=== PATIENT | female | born 1980 | race Caucasian/White ===

== ENCOUNTER 2017-02-02 13:12 | Emergency (ER) | payer OTHER ==
[~2017-02-02] VITALS: Ht 152.4 cm; Wt 80.0 kg
[~2017-02-02 13:12] MED LIST: ACET325T33 PO; CIPR500T4 PO; D-ME473S18 PO; DOCU-144 PO; FLUT9.9S NASAL; PSEU30TA38 PO
[2017-02-02 13:24] VITALS: Ht 152.4 cm; Wt 80.0 kg
[2017-02-02] MEDS ORDERED: SOD CHLORIDE 0.9% 500 ML IV STA (15:11)
[2017-02-02] MEDS ORDERED: ONDANSETRON 4 MG INJ IV STA ×2 (15:11→16:30)
[2017-02-02] MEDS ORDERED: DICYCLOMINE 20 MG INJ IM ONE (15:30)
[2017-02-02 15:32] LABS: BASOPHILS % 0.2 % (0.0-2.0); EOSINOPHILS # 0.1 10^3/ul (0.0-0.5); EOSINOPHILS % 0.6 % (0.0-7.0); HEMATOCRIT 40.1 % (37.0-47.0); LYMPHOCYTES # 2.8 10^3/ul (0.8-2.9); LYMPHOCYTES % 17.4 % (15.0-51.0); MEAN CORPUSCULAR HEMOGLOBIN 33.9 pg (29.0-33.0); MEAN CORPUSCULAR HGB CONC 34.9 g/dl (32.0-37.0); MEAN CORPUSCULAR VOLUME 97.1 fl (82.0-101.0); MEAN PLATELET VOLUME 9.4 fl (7.4-10.4); MONOCYTES % 6.1 % (0.0-11.0); NEUTROPHIL # 12.1 10^3/ul (1.6-7.5); NEUTROPHILS % 75.2 % (39.0-77.0); PLATELET COUNT 259 10^3/UL (140-415); RED BLOOD COUNT 4.13 10^6/ul (4.20-5.40); RED CELL DISTRIBUTION WIDTH 12.6 % (11.5-14.5); WHITE BLOOD COUNT 16.1 10^3/ul (4.8-10.8)
--- NOTE | 2017-02-02 15:36 | ERD ---
ER Documentation Chief Complaint Chief Complaint pt bib self with c/o right sided abd pain, and vomting since yesterday HPI This is a 36-year-old female presents with 24-48 hours of symptoms that include lower abdominal discomfort. At triage she noted right-sided abdominal pain but in the ER she is describing suprapubic abdominal discomfort. She does describe some dysuria. Mild nausea but no vomiting. She also has been constipated for 1 week. She describes a prolonged history of constipation. No fevers or chills or anorexia. No migratory pain. ROS All systems reviewed and are negative except as per history of present illness. Medications Home Meds Active Scripts Metronidazole* (Flagyl*) 500 Mg Tablet, 500 MG PO TID for 7 Days, TAB Prov:SANIYA CASAS MD 02/02/17 Ciprofloxacin Hcl* (Ciprofloxacin Hcl*) 500 Mg Tablet, 500 MG PO BID for 7 Days , TAB Prov:SANIYA CASAS MD 02/02/17 Docusate Sodium* (Colace*) 100 Mg Capsule, 100 MG PO BID Y for CONSTIPATION, # 30 CAP Prov:SANIYA CASAS MD 02/02/17 Ondansetron (Ondansetron Odt) 4 Mg Tab.rapdis, 4 MG PO Q6H Y for NAUSEA AND/OR VOMITING, #10 TAB Prov:SANIYA CASAS MD 02/02/17 Hydrocodone/Acetaminophen ([place] 10-325 Tablet) 1 Each Tablet, 1 TAB PO Q6H Y for PAIN, #7 TAB Prov:SANIYA CASAS MD 02/02/17 Dextromethorphan Hb-Promethazine Hcl (Promethazine DM Syrup) 473 Ml Syrup, 5 ML PO Q6H Y for COUGH, #4 OZ Prov:CAROLE HUYNH PA-C 03/30/16 Acetaminophen* (Tylenol*) 325 Mg Tablet, 2 TAB PO Q8 Y for PAIN AND OR ELEVATED TEMP, #20 TAB Prov:CAROLE HUYNH PA-C 03/30/16 Fluticasone Propionate (Flonase Allergy Relief) 9.9 Ml [place].susp, 1 SPRAY NASAL DAILY, #1 BOTTLE TO EACH NOSTRIL Prov:CAROLE HUYNH PA-C 03/30/16 Pseudoephedrine Hcl* (Pseudoephedrine Hcl*) 30 Mg Tablet, 30 MG PO Q6 Y for CONGESTION, #30 TAB Prov:CAROLE HUYNH PA-C 03/30/16 Ciprofloxacin Hcl* (Ciprofloxacin Hcl*) 500 Mg Tablet, 500 MG PO BID for 7 Days , TAB Prov:CAROLE HUYNH PA-C 03/30/16 Docusate Sodium* (Colace*) 100 Mg Capsule, 100 MG PO TID, #30 CAP Prov:ASAEL RIOS PA-C 11/22/15 Allergies Allergies: Coded Allergies: ibuprofen (Verified Allergy, Intermediate, "BODY REJECTS IT... I FEEL SICK ", 11/22/15) PMhx/Soc Medical and Surgical Hx: pt denies Medical Hx, pt denies Surgical Hx History of Surgery: No Anesthesia Reaction: No Hx Neurological Disorder: No Hx Respiratory Disorders: No Hx Cardiac Disorders: No Hx Psychiatric Problems: No Hx Miscellaneous Medical Probl: No (hernia) Hx Alcohol Use: No Hx Substance Use: No Hx Tobacco Use: No Smoking Status: Never smoker FmHx Family History: No diabetes Physical Exam Vitals Vital Signs Date Time Temp Pulse Resp B/P Pulse Ox O2 Delivery O2 Flow Rate FiO2 02/02/17 13:24 99.4 116 16 122/86 99 Physical Exam General: Well developed, well nourished, no acute distress Head: Normocephalic, atraumatic. Eyes: Pupils equally reactive, EOM intact ENT: Moist mucous membranes Neck: Supple, no lymphadenopathy Respiratory: Lungs clear bilaterally, no distress Cardiovascular: RRR, no murmurs, rubs, or gallops Abdominal: Soft, mild tenderness to the suprapubic region, negative Chandler sign , negative Rovsing sign, no peritonitis, negative Chandler sign. : Deferred MSK: No edema, no unilateral swelling, 5/5 strength Neurologic: Alert and oriented, moving all extremities, normal speech, no focal weakness, no cerebellar signs Skin: No rash Psych: Normal mood Result Diagram: 02/02/17 1523 02/02/17 1523 Results 24 hrs Laboratory Tests Test 02/02/17 13:20 02/02/17 15:23 Urine Color YELLOW Urine Clarity CLOUDY Urine pH 6.0 Urine Specific [place] 1.028 Urine Ketones 1+mg/dL Urine Nitrite NEGATIVEmg/dL Urine Bilirubin NEGATIVEmg/dL Urine Urobilinogen NEGATIVEmg/dL Urine Leukocyte Esterase 2+[place]/ul Urine Microscopic RBC 11/HPF Urine Microscopic WBC 8/HPF Urine Squamous Epithelial Cells MANY/HPF Urine Mucus MANY/HPF Urine Hemoglobin 1+mg/dL Urine Glucose NEGATIVEmg/dL Urine Total Protein 1+mg/dl White Blood Count 16.110^3/ul Red Blood Count 4.1310^6/ul Hemoglobin 14.0g/dl Hematocrit 40.1% Mean Corpuscular Volume 97.1fl Mean Corpuscular Hemoglobin 33.9pg Mean Corpuscular Hemoglobin Concent 34.9g/dl Red Cell Distribution Width 12.6% Platelet Count 19695^3/UL Mean Platelet Volume 9.4fl Neutrophils % 75.2% Lymphocytes % 17.4% Monocytes % 6.1% Eosinophils % 0.6% Basophils % 0.2% Nucleated Red Blood Cells % 0.0/100WBC Neutrophils # 12.110^3/ul Lymphocytes # 2.810^3/ul Monocytes # 1.010^3/ul Eosinophils # 0.110^3/ul Basophils # 0.010^3/ul Nucleated Red Blood Cells # 0.010^3/ul Sodium Level 141mmol/L Potassium Level 3.7mmol/L Chloride Level 105mmol/L Carbon Dioxide Level 25mmol/L Anion Gap 15 Blood Urea Nitrogen 9mg/dl Creatinine 0.73mg/dl Glucose Level 101mg/dl Calcium Level 9.7mg/dl Total Bilirubin 0.4mg/dl Direct Bilirubin 0.00mg/dl Indirect Bilirubin 0.4mg/dl Aspartate Amino Transf (AST/SGOT) 24IU/L Alanine Aminotransferase (ALT/SGPT) 33IU/L Alkaline Phosphatase 93IU/L Total Protein 8.1g/dl Albumin 4.3g/dl Globulin 3.80g/dl Albumin/Globulin Ratio 1.13 Lipase 48U/L Current Medications Medications (Trade) Dose Ordered Sig/Jean Route PRN Reason Start Time Stop Time Status Last Admin Dose Admin Sodium Chloride (NS) 500 ml @ 500 mls/hr Q1H STAT IV 02/02/17 15:11 02/02/17 16:10 DC 02/02/17 15:31 Dicyclomine HCl (Bentyl) 10 mg ONCE ONCE IM 02/02/17 15:30 02/02/17 15:31 DC 02/02/17 15:35 Ondansetron HCl (Zofran Inj) 4 mg ONCE STAT IV 02/02/17 15:11 02/02/17 15:13 DC 02/02/17 15:31 Hydromorphone HCl (Dilaudid) 0.5 mg ONCE STAT IV 02/02/17 16:30 02/02/17 16:31 DC 02/02/17 16:35 Ondansetron HCl (Zofran Inj) 4 mg ONCE STAT IV 02/02/17 16:30 02/02/17 16:31 DC 02/02/17 16:34 Ciprofloxacin (Cipro) 500 mg ONCE ONCE PO 02/02/17 16:30 02/02/17 16:31 DC 02/02/17 16:34 Metronidazole (Flagyl) 500 mg ONCE ONCE PO 02/02/17 16:30 02/02/17 16:31 DC 02/02/17 16:45 Procedures/MDM EKG, MONITORS, & DIAGNOSTIC IMAGING: CT abdomen and pelvis: IMPRESSION: Wall thickening is seen with inflammation of the sigmoid colon consistent with diverticulitis. There is no CT evidence of perforation or obstruction or abscess. There is a mildly fecal filled colon. No evidence of renal or ureteral calculi or hydronephrosis. Hepatomegaly is present. Intrauterine device is seen within the uterus. RPTAT: AA LAB INTERPRETATION: Leukocytosis of 16 MEDICAL DECISION MAKING: The patient presents with abdominal pain that is suprapubic in nature and constipation. She does however have a low-grade fever in triage. On clinical exam she does not localize to McBurney's point, she appears to have midline tenderness. I believe this is possibly consistent with acute cystitis versus constipation. I would like to avoid unnecessary CT imaging. I discussed this with the patient who is agreeable. ER COURSE: She was given IV fluids and Bentyl. However, she has significant leukocytosis of 16. Given her abdominal pain and repeat exam was slight pain to the right of midline I believe CT imaging to rule out appendicitis would be reasonable. I discussed the risks, benefits, alternatives with the patient. She is agreeable. The patient's CT shows no evidence of appendicitis but does show acute diverticulitis without complication. The patient was given pain medication, oral Cipro and Flagyl and she tolerated this well. I believe a trial of outpatient medication with stool softener, pain control medication, Cipro and Flagyl would be most reasonable. We did discuss return precautions including intractable pain, fevers. The patient feels comfortable with the plan. I kept the patient and/or family informed of laboratory and diagnostic imaging results throughout the emergency room course. DISPOSITION PLAN: We discussed follow up with the patient's primary care doctor within 24 to 48 hours as needed. We also discussed return to the emergency room for worsening symptoms or worsening condition. Outpatient referral: [None required] Discharge Medications: Cipro, Flagyl, [place], Zofran, Colace We discussed the use of narcotics including avoidance of operating heavy machinery and driving as well as its addictive properties. Departure Diagnosis: Primary Impression: Diverticulitis Diverticulitis site: unspecified part of intestinal tract Diverticulitis bleeding: without bleeding Diverticulitis complication: without perforation or abscess Qualified Code: K57.92 - Diverticulitis of intestine without perforation or abscess without bleeding, unspecified part of intestinal tract Additional Impressions: Abdominal pain Abdominal location: generalized Qualified Code: R10.84 - Generalized abdominal pain Leukocytosis Leukocytosis type: unspecified Qualified Code: D72.829 - Leukocytosis, unspecified type Condition: Stable SANIYA CASAS MD Feb 02, 2017 15:36
[2017-02-02 15:42] LABS: ADD UMIC YES; UR ASCORBIC ACID NEGATIVE (NEGATIVE); UR BILIRUBIN (Dip) NEGATIVE (NEGATIVE); UR BLOOD (Dip) 1+ mg/dL (NEGATIVE); UR CLARITY CLOUDY (CLEAR); UR COLOR YELLOW (YELLOW); UR GLUCOSE (Dip) NEGATIVE (NEGATIVE); UR KETONES (Dip) 1+ mg/dL (NEGATIVE); UR LEUKOCYTE ESTERASE (Dip) 2+ Leu/ul (NEGATIVE); UR MUCUS MANY /HPF (NONE SEEN); UR NITRITE (Dip) NEGATIVE (NEGATIVE); UR RBC 11 /HPF (0-5); UR SPECIFIC GRAVITY (Dip) 1.028 (1.003-1.030); UR SQUAMOUS EPITHELIAL CELL MANY /HPF (FEW); UR TOTAL PROTEIN (Dip) 1+ mg/dl (NEGATIVE); UR UROBILINOGEN (Dip) NEGATIVE (NEGATIVE)
[2017-02-02 15:56] LABS: ALBUMIN 4.3 g/dl (3.3-4.9); ALBUMIN/GLOBULIN RATIO 1.13; BILIRUBIN,INDIRECT 0.4 mg/dl (0-1.1); BILIRUBIN,TOTAL 0.4 mg/dl (0.2-1.3); CALCIUM 9.7 mg/dl (8.4-10.2); CREATININE 0.73 mg/dl (0.44-1.00); POTASSIUM 3.7 mmol/L (3.5-5.1); TOTAL PROTEIN 8.1 g/dl (6.1-8.1)
--- NOTE | 2017-02-02 16:24 | RADRPT ---
PROCEDURE: CT abdomen and pelvis without contrast. CLINICAL INDICATION: Abdominal pain. TECHNIQUE: CT scan of the abdomen and pelvis without contrast was performed on a multi-slice CT [facility] [place] . Sagittal and coronal reformatted images were obtained from the axial source images. One or more of the following dose reduction techniques were used: - Automated exposure control. - Adjustment of the mA and/or kV according to patient size. Use of iterative reconstruction technique. DLP 951.9 mGycm. CTDIvol 17.3 mGy COMPARISON: 03/30/2016 FINDINGS: The lung bases are clear. There is limited evaluation of the solid viscera for lack of IV contrast. There is wall thickening of the sigmoid colon with adjacent fat stranding in an area of diverticulos is. There is no evidence for obstruction or appendicitis. There is no visible free air or free flu id or evidence of an abnormal fluid collection. There is a mildly fecal filled colon. There is mild hepatomegaly of the liver with no gross focal lesion or biliary ductal dilatation. Th e gallbladder is unremarkable without inflammation. The spleen is unremarkable without mass. The adrenal glands are within normal limits without mass. The kidneys are symmetric bilaterally with no evidence of renal or ureteral calculi. There is no hy dronephrosis or perinephric stranding. The pancreas is unremarkable without focal lesion or surrounding inflammatory changes. There are n o enlarged lymph nodes. The aorta is unremarkable and there is no acute osseous abnormality. Delete the Intrauterine device is visualized within the uterine cavity. The adnexal structures are grossly unre markable. IMPRESSION: Wall thickening is seen with inflammation of the sigmoid colon consistent with diverticulitis. There is no CT evidence of perforation or obstruction or abscess. There is a mildly fecal filled colon. No evidence of renal or ureteral calculi or hydronephrosis. Hepatomegaly is present. Intrauterine device is seen within the uterus. RPTAT: AA .Mani Boyd MD, MD Date Time Electronically viewed and signed by .Mani Boyd MD, MD on 02/02/2017 16:23 .Melva/
[2017-02-02] MEDS ORDERED: metroNIDAZOLE 500 MG TAB PO ONE (16:30)
[2017-02-02] MEDS ORDERED: HYDROmorphONE 0.5 MG/0.5 ML SYG IV STA (16:30)
[2017-02-02] MEDS ORDERED: CIPROFLOXACIN 500 MG TAB PO ONE (16:30)
[2017-02-02] MEDS ORDERED: DOCU-144 PO (17:01)
[2017-02-02] MEDS ORDERED: METR500T PO (17:01)
[2017-02-02] MEDS ORDERED: ONDA4TAB14 PO (17:01)
[2017-02-02] MEDS ORDERED: CIPR500T4 PO (17:01)
[2017-02-02] MEDS ORDERED: HYDR-902 PO (17:01)
[2017-02-02 17:23] VITALS: BP 138/88; PULSE 108; RESP 20; TEMP 98.3
== END 2017-02-02 17:26 | disposition home or self-care (01) ==
LOC: FTE 13:12
DX: K57.92 Diverticulitis of intestine, part unspecified, without perforation or abscess without bleeding (principal); D72.829 Elevated white blood cell count, unspecified
CPT/HCPCS: 36415; 74176; 80053; 81001; 83690; 85025; 96372; 96374; 96375; J0500; J2405; J7040; Z7502; Z7610